=== PATIENT | female | born 1950 | race Caucasian/White ===

== ENCOUNTER 2017-04-10 09:12 | Day surgery (SDC) | payer MEDICARE ==
[~2017-04-10] VITALS: Ht 157.5 cm; Wt 42.5 kg
[2017-04-10 10:01] VITALS: BP 113/75
[2017-04-10] MEDS ORDERED: SODIUM CHLORIDE 0.9% 1,000 ML IV SCH (10:05)
[2017-04-10] MEDS ORDERED: FENTANYL PF 100 MCG/2ML ONE (10:58)
[2017-04-10] MEDS ORDERED: MIDAZOLAM 1 MG/ML, 5ML ONE (10:58)
== END 2017-04-10 13:50 ==
LOC: OUT 09:12
PROVIDERS: ATTEND Internal Medicine Hematology & Oncology
DX: C41.3 Malignant neoplasm of ribs, sternum and clavicle (principal); I10 Essential (primary) hypertension; Z87.891 Personal history of nicotine dependence; Z98.890 Other specified postprocedural states; Z85.810 Personal history of malignant neoplasm of tongue
CPT/HCPCS: 20220; 71010; 77012; 88304; 99156; 99157; J2250; J3010; J7030